=== PATIENT | male | born 1965 | race Caucasian/White ===

== ENCOUNTER → 2016-10-31 | Day surgery (SDC) | payer OTHER ==
[~2016-10-31] MED LIST: CRESTOR10 MG PO; RAMIPRIL5 MG PO
--- NOTE | ~2016-10-31 | OR ---
Unit #: [id number] #: [id number] Patient: UYEN ROSALES [id number] [address] [address] [id number] O MR#: [id number] NAME: UYEN ROSALES ROOM: Date of Procedure: 10/31/2016 Admission Date: 10/31/2016 Surgeon: Wallace Mckeon M.D. : 1965 Attending Physician: Wallace Mckeon M.D. Primary Care Physician: Primary Care Physician No OPERATIVE REPORT PREOPERATIVE DIAGNOSIS Left-sided cervical lymphadenopathy. POSTOPERATIVE DIAGNOSIS Left-sided cervical lymphadenopathy. PROCEDURE PERFORMED Excisional biopsy of a deep space lymph node of the left level five of the neck. ANESTHESIA General endotracheal anesthesia. COMPLICATIONS There were none. FINDINGS Included an enlarged 1.7 cm lymph node of the left level five deep space of the neck. HISTORY This is a 51-year-old male who has had at least three months of persistent lymphadenopathy of the left lower neck. Ultrasound in the clinic showed several abnormally enlarged lymph nodes in this region including level four and level five. FNA showed inconclusive findings with negative flow cytometry. Decision was made to go ahead with an excisional biopsy of this prominent node for further pathology. DESCRIPTION OF PROCEDURE The patient was placed supine on the operating table. Anesthesia was achieved by general LMA anesthesia. The patient was prepped and draped for an excisional biopsy of this node. Approximately 1.5-2 cm incision was made over this node and with a 15 blade after 1% lidocaine with epinephrine was injected. Dissection was carried down through the platysma and just medial beneath the SCM. A 1.7 cm lymph node was then easily dissected and sent for pathology as a fresh specimen. The wound was irrigated and then closed with a 4-0 Vicryl interrupted stitch and a 5-0 Prolene in a subcuticular fashion was used to close the skin. Dressing was placed. The patient awakened and transferred to Recovery in stable condition. Unit #: [id number] #: [id number] Patient: UYEN ROSALES Dictated by... Caleb White/krysta TD: 11/01/2016 09:38 JOB #: [id number] OPERATIVE REPORT Page 1 of 1 X Wallace Mckeon MD PROCEDURE OPERATIVE NOTE
== END | disposition home or self-care (01) ==
LOC: CSUR 08:46
PROVIDERS: Specialist
DX: R59.0 Localized enlarged lymph nodes (principal); E78.5 Hyperlipidemia, unspecified; Z79.899 Other long term (current) drug therapy; Z98.890 Other specified postprocedural states
CPT/HCPCS: 87070; 87075; 87102; 87116; 87205; 87206; 88305; J0690; J2250; J3010